=== PATIENT | male | born 1985 | race Caucasian/White ===

== ENCOUNTER 2018-11-21 08:07 | Outpatient (CLI) | payer MEDICARE, MEDICAID, SELFPAY ==
[2018-11-21 13:16] LABS: TSH (W/Ref FT4) 3.54 uIU/mL (0.358-3.74)
== END 2018-11-21 08:27 ==
PROVIDERS: PCP Family Medicine; Visit Provider Family Medicine
DX: Q90.9 Down syndrome, unspecified (principal); R94.6 Abnormal results of thyroid function studies
CPT/HCPCS: 36415; 84443

== ENCOUNTER 2020-03-26 03:39 | Outpatient (CLI) | payer MEDICARE, MEDICAID, SELFPAY ==
[2020-03-26 13:14] LABS: Calculated LDL 155 mg/dL (<100); Cholesterol 222 mg/dL (<200); HDL Cholesterol 46 mg/dL (40-60); TSH (W/Ref FT4) 2.32 uIU/mL (0.36-3.74); Triglyceride 107 mg/dL (<150)
== END 2020-03-26 03:59 ==
PROVIDERS: PCP Family Medicine; Visit Provider Nurse Practitioner
DX: R53.83 Other fatigue (principal); E78.5 Hyperlipidemia, unspecified; R73.09 Other abnormal glucose; E66.3 Overweight; Q90.9 Down syndrome, unspecified
CPT/HCPCS: 80061; 83036; 84443

== ENCOUNTER 2021-04-24 08:24 | Outpatient (CLI) | payer MEDICARE, MEDICAID, SELFPAY ==
--- NOTE | 2021-04-24 07:45 | DI.US_ITS ---
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 Estimated ejection fraction is 60%. Wall m otion is normal Normal right ventricular size and systolic function Both atria are normal in size The atrial septum is intact without evidence of a PFO or secundum ASD The aortic valve is trileaflet. There is a very small focal area of calcification on the right coron sherrill cusp. No aortic stenosis. Trace aortic regurgitation There is mild mitral regurgitation. The mitral valve appeared structurally normal Normal tricuspid valve, trace regurgitation. Estimated right ventricular systolic pressure is normal Normal pulmonic valve, trace regurgitation There is a small area of left to right shunt, seen on short axis and appears below the level of the a ortic valve. Further characterization was not possible No ventricular septal defect seen Wall motion Left Ventricle The left ventricle is normal size. The left ventricular systolic function is normal. The left ventric ular ejection fraction is within the normal range. There is normal left ventricular wall thickness. T here is normal LV segmental wall motion. There is no ventricular septal defect visualized. LVEF is 60 %. Right Ventricle The right ventricle is normal size. The right ventricular systolic function is normal. The RVSP is 18 .6mmHg. Atria The left atrium size is normal. The right atrium size is normal. Aortic Valve Aortic valve is trileaflet. Focal area of calcification on right coronary cusp There is no aortic phyllis vular stenosis. Trace aortic regurgitation. Mitral Valve The mitral valve is normal in structure. No evidence of mitral valve stenosis. Mild mitral regurgitat ion. Mitral regurgitation jet is eccentrically directed. Tricuspid Valve The tricuspid valve is normal in structure. There is no tricuspid valve stenosis. Trace tricuspid reg urgitation. Pulmonic Valve The pulmonary valve is normal in structure. There is no pulmonic valvular stenosis. Trace pulmonic re gurgitation. Great Vessels The aortic root is normal in size. The ascending aorta is normal in size. Aortic arch is normal in ca liber. IVC is normal in size and collapses >50% with inspiration. Pericardium There is no pericardial effusion. 2D Dimensions IVSD d PLAX 0.83 cm M: 0.6-1.2 LV Vol A2C d MOD 74.7 mL LVPW d PLAX 0.89 cm M: 0.6 - 1.2 LV Vol A4C d MOD 72.2 mL LVID d PLAX 4.00 cm M: 4.2 - 5.8 LA vol/ BSA A2C s A-L 27.3 mL/m2 LVDs 2.60 cm M: 2.5 - 4.0 LA vol/ BSA A4C s A-L 23.6 mL/m2 Ao Root d 2.79 cm M: 3.1 - 3.7 LA Vol/ BSA Biplane s A-L 25.5 mL/m2 RA Area A4C 9.68 cm2 LA Area A4C s MOD 14.62 cm2 RA Vol/ BSA A4C s A-L 13.7 mL/m2 LA Area A2C s MOD 15.79 cm2 Ao Asc Diam d 2.56 cm M: 2.6 - 3.4 LV EF A4C MOD 59.0 % LV EF Teichholz 63.3 % LV EF A2C MOD 60.6 % LVEF (Brady's) 59.27 % M: 52 - 72 LV EF Biplane MOD 59.3 % LV Volume 59.22 mL M: 62 - 150 SV 43.44 mL LV Volume Index 36.55 mL/m2 M: 34 - 74 SV Index 26.76 mL/m2 LV Vol Biplane MOD 73.3 mL FS 33.85 % M-Mode TAPSE 3.21 cm (M/F) >1.7 LV Diastology MV E' medial 0.147 (>0.07 m/s) E/A Ratio 2.6 LV E/e MED 7.00 (<14) MV E Vmax 1.03 (0.4-1.3 m/s) MV E' lateral 0.171 (>0.1 m/s) MV A Vmax 0.40 (0.4-1.3 m/s) LV E/e LAT 6.00 (<14) MV E/A Ratio 2.32 MV E/E' medial 7.04 MV E/E' lateral 6.03 Aortic Valve LVOT Area 2.71 cm2 AoV Area Vmax 2.20 cm2 LVOT Vmax 0.99 m/s AoV Area/ BSA (Vmax) 1.36 cm2/m2 LVOT Mean Alfred. 0.62 m/s AGUILA Mean Alfred. 1.92 cm2 LVOT Peak Grad 3.9 mmHg AGUILA Mean Alfred. Index 1.18 cm2/m2 LVOT Mean Grad 1.8 mmHg LVOT VTI 0.213 m LVOT Diam s 1.85 cm AoV Vmax 1.21 m/s Velocity Ratio 0.81 AoV Mean Alfred. 0.87 m/s AoV Peak Grad 5.9 mmHg LVOT SV 57.90 mL AoV Mean Grad 3.4 mmHg AoV VTI 0.244 m AoV Area VTI 2.37 cm2 AoV Area/ BSA (VTI) 1.46 cm/m2 Mitral Valve MV DT 153 (160-240 msec) MR Vmax 4.47 m/s MV PHT 44 msec MR VTI 1.336 m MV Area PHT 4.95 cm2 MR Peak Grad 80.0 mmHg MV VTI 0.339 m MR Mean Grad 58.3 mmHg MV VTI Annulus 0.353 m MR PISA Radius 0.58 cm MV Area VTI 1.78 (4.0-6.0 cm2) MR EROA 0.17 cm2 MR Aliasing Velocity 0.35 m/s MR PISA 2.15 cm2 Pulmonary Valve PV Vmax 1.36 (0.5-1.5 m/s) RVOT Peak Gr. 4.12 mmHg PV Peak Grad 7.4 mmHg RVOT Mean Gr. 2.00 mmHg PV Mean Grad 3.7 mmHg RVOT VTI 0.228 m PV VTI 0.293 m RVOT Vmax 1.02 m/s Tricuspid Valve TR Peak Grad 15.6 mmHg TR Vmax 1.98 m/s RA Pressure 3.00 mmHg RVSP (TR) 18.6 mmHg
== END 2021-04-24 08:44 ==
PROVIDERS: PCP Family Medicine; Visit Provider Nurse Practitioner Family
DX: R55 Syncope and collapse (principal); I34.0 Nonrheumatic mitral (valve) insufficiency; Z86.79 Personal history of other diseases of the circulatory system
CPT/HCPCS: 93306

== ENCOUNTER → 2021-11-25 09:57 | Outpatient (BNVA) | payer MEDICARE, MEDICAID, SELFPAY | PROVIDERS: PCP Family Medicine; Referring Provider Family Medicine; Visit Provider Student in an Organized Health Care Education/Training Program | DX: S93.401A Sprain of unspecified ligament of right ankle, initial encounter (principal); X58.XXXA Exposure to other specified factors, initial encounter | CPT/HCPCS: 99202; 99203 ==

== ENCOUNTER 2022-07-14 02:08 | Outpatient (CLI) | payer MEDICARE, MEDICAID, SELFPAY ==
[2022-07-14 09:20] LABS: Calculated LDL 154 mg/dL (<100); Cholesterol 232 mg/dL (<200); HDL Cholesterol 52 mg/dL (40-60); TSH 2.43 uIU/mL (0.36-3.74); Triglyceride 130 mg/dL (<150)
== END 2022-07-14 02:09 | disposition home or self-care (01) ==
PROVIDERS: PCP Family Medicine; Visit Provider Family Medicine
DX: E78.5 Hyperlipidemia, unspecified (principal); Q90.9 Down syndrome, unspecified
CPT/HCPCS: 36415; 80061; 84443